=== PATIENT | male | born 1945 | race Caucasian/White ===

== ENCOUNTER 2023-08-17 06:20 | Day surgery (SDC) | payer MEDICARE ==
[2023-08-14 14:49] VITALS: BP 136/63; PULSE 58; RESP 19
[2023-08-14 14:50] LABS: BASOPHILS # (AUTO) 0.04 K/uL (0.00-0.20); BASOPHILS % (AUTO) 0.5 % (0.0-5.0); EOSINOPHILS # (AUTO) 0.22 K/uL (0.00-0.70); EOSINOPHILS % (AUTO) 2.9 % (0.0-8.0); HEMATOCRIT 43.8 % (42-54); IMMATURE GRANULOCYTE ABSOLUTE 0.02 K/uL (0-1); LYMPHOCYTES # (AUTO) 2.1 K/uL (1.0-4.8); MEAN CORPUSCULAR HEMOGLOBIN 32.1 pg (27.0-33.0); MEAN CORPUSCULAR HGB CONC 32.6 g/dL (32.0-36.0); MEAN CORPUSCULAR VOLUME 98.4 fL (79-99); MONOCYTES # (AUTO) 0.8 K/uL (0.1-1.0); NEUTROPHILS # (AUTO) 4.3 K/uL (1.8-7.7); NEUTROPHILS % (AUTO) 57.3 % (40.0-77.0); PLATELET COUNT (AUTO) 241 K/uL (130-400); RED BLOOD CELL COUNT(AUTO) 4.45 MIL/uL (4.50-6.20); RED CELL DISTRIBUTION WIDTH 13.3 % (11.0-15.5); WHITE BLOOD COUNT (AUTO) 7.5 K/uL (4.8-10.8)
[2023-08-14 14:52] LABS: APPEARANCE,URINE CLEAR (CLEAR); BILIRUBIN,URINE NEGATIVE (NEGATIVE); COLOR,URINE LIGHT-YELLOW (YELLOW); GLUCOSE, URINE (UA) NEGATIVE (NEGATIVE); KETONES,URINE NEGATIVE (NEGATIVE); LEUKOCYTE ESTERASE ,URINE NEGATIVE Leu/uL (NEGATIVE); NITRATE,URINE NEGATIVE (NEGATIVE); OCCULT BLOOD,URINE NEGATIVE (NEGATIVE); PH,URINE 5.5 (5.0-8.0); PROTEIN,URINE NEGATIVE (NEGATIVE); UROBILINOGEN,URINE 0.2 mg/dL (0.2-1.0)
[2023-08-14 14:53] LABS: ADD UA MICROSCOPIC YES
[2023-08-14 14:57] LABS: MUCUS,URINE RARE LPF (None Seen); RBC,URINE 0-1 /HPF (0-1); WBC,URINE 0-1 /HPF (0-1)
[2023-08-14 15:01] LABS: INR < 0.93 (0.85-1.15); PROTHROMBIN TIME 10.4 SEC (9.6-11.6)
[2023-08-14 15:02] LABS: PARTIAL THROMBOPLASTIN TIME 27.6 SEC (26.3-35.5)
[2023-08-14 15:13] LABS: ALBUMIN 3.6 g/dL (3.5-5.0); BILIRUBIN,TOTAL 0.2 mg/dL (0.2-1.0); CREATININE 1.1 mg/dL (0.5-1.5); POTASSIUM 4.7 mmol/L (3.5-5.1); TOTAL PROTEIN, SERUM 7.2 g/dL (6.0-8.3)
[~2023-08-17] VITALS: Ht 182.9 cm; Wt 76.7 kg
[2023-08-17] VITALS (17 sets, daily range): BP systolic 107–132; BP diastolic 44–62; PULSE 58–65; RESP 12–19
[~2023-08-17 06:20] MED LIST: AEC81 PO; FLEC100T3 PO
[2023-08-17] MEDS ORDERED: LACTATED RINGERS 1000ML 1,000 ML IV ONE (06:44)
[2023-08-17] MEDS ORDERED: CEFAZOLIN SODIUM 2 GM VIAL ONE (06:44)
[2023-08-17] MEDS ORDERED: HYDROMORPHONE 1 MG INJ ONE (07:12)
[2023-08-17] MEDS ORDERED: SUGAMMADEX SODIUM 200 MG/2 ML VIAL IV ONE (07:12)
[2023-08-17] MEDS ORDERED: FAMOTIDINE 20MG VIAL IV ONE (07:13)
[2023-08-17] MEDS ORDERED: PHENYLEPHRINE HCL 10 MG/ML 1ML VIAL IV ONE (07:16)
[2023-08-17] MEDS ORDERED: PROPOFOL 10 MG/ML 20ML VIAL IV ONE (07:19)
[2023-08-17] MEDS ORDERED: GLYCOPYRROLATE 1 MG/5 ML SYRINGE ONE (07:19)
[2023-08-17] MEDS ORDERED: ROCURONIUM 10MG/1ML SYR 10 MG/ML ML ONE (07:19)
[2023-08-17] MEDS ORDERED: LIDOCAINE PF 100MG/5ML (2%) SYRINGE 5ML ONE (07:19)
[2023-08-17] MEDS ORDERED: FENTANYL CITRATE PF 50 MCG/1 ML 2ML VIAL ONE (07:19)
[2023-08-17] MEDS ORDERED: BUPIVACAINE/PF 0.5% 30ML VIAL ONE (07:37)
[2023-08-17] MEDS ORDERED: ROPIVACAINE 0.5% 5MG/ML 30ML ONE (07:46)
[2023-08-17] MEDS ORDERED: EPHEDRINE SULFATE 50 MG/ML AMPULE ONE (08:44)
[2023-08-17] MEDS ORDERED: ONDANSETRON 4MG INJ ONE (08:53)
[2023-08-17] MEDS ORDERED: NEOSTIGMINE 5MG/5ML SYR IV ONE (09:47)
== END 2023-08-17 18:40 | disposition home or self-care (01) ==
LOC: DAH 06:20
PROVIDERS: ATTEND Student in an Organized Health Care Education/Training Program
DX: K40.90 Unilateral inguinal hernia, without obstruction or gangrene, not specified as recurrent (principal); D17.39 Benign lipomatous neoplasm of skin and subcutaneous tissue of other sites; Z79.01 Long term (current) use of anticoagulants; Z79.899 Other long term (current) drug therapy; Z98.41 Cataract extraction status, right eye; Z98.42 Cataract extraction status, left eye; Z87.891 Personal history of nicotine dependence; Z79.82 Long term (current) use of aspirin
CPT/HCPCS: 80053; 85025; 85610; 85730; 81001; 36415; 93005; 49650; A6260; A4600; A5113; C1781; J7030; A4344; J7120; J3490 ×3; J3010; J2710; J2001; J2704; J2405; J0665; J2795; J2371; J0690; C1769; G0168; C1713; A4215; A4223; A4358; A4222; A4221; A4663; J1170

== ENCOUNTER → 2023-11-28 | Outpatient (CLI) | payer OTHER | END | disposition home or self-care (01) | LOC: RAH 07:40 | PROVIDERS: ATTEND Internal Medicine Cardiovascular Disease | DX: Z13.6 Encounter for screening for cardiovascular disorders (principal) | CPT/HCPCS: 75571 ==

== ENCOUNTER 2024-09-30 18:28 | Emergency (ER) | payer MEDICARE, OTHER ==
[~2024-09-30] VITALS: Ht 182.9 cm; Wt 70.3 kg
--- NOTE | 2024-09-30 18:37 | EKG ---
[facility] Test Date: 2024-09-30 Test Time: 18:33:56 Pat Name: ALENA STYLES Department: ED Room: Gender: M Consumer Insights Specialist: [id number] : 1945 Requested By: NANCY GIRALDO Order Number: [id number] Reading MD: Prashant Su Measurements Intervals [place] Rate: 129 P: 0 ME: 0 QRS: 65 QRSD: 107 T: -65 QT: 327 QTc: 481 Interpretive Statements Atrial fibrillation Compared to ECG 08/14/2023 14:39:39 Sinus rhythm no longer present Electronically Signed On 10-01-2024 18:39:32 PLATFORM POWER TECHNICIAN by Prashant Su Please click the below link to view image of tracing.
--- NOTE | 2024-09-30 18:38 | ERN ---
ED Note History of Present Illness Stated Complaint: COUGH Chief Complaint: Congestion Time Seen by MD: 18:29 Dictation: PATIENT IS A 79-YEAR-OLD HERE WITH ATRIAL FIBRILLATION AND CAD WITH COMPLAINTS OF CHEST BURNING WITH COUGH HE HAS HAD FOR 5-6 DAYS. NO FEVER NO CHILLS STATES THE OCCASION OF THE COUGH HAS A YELLOW PHLEGM. STATES HE IS ON FLECAINIDE FOR HIS ATRIAL FIB. PATIENT NOTED TO BE TACHYCARDIC IN TRIAGE Allergies: Coded Allergies: No Known Drug Allergies (Unverified Allergy, Unknown, 08/14/23) Home Meds Reported Medications Aspirin (ASPIRIN 81 MG ECTAB) 81 Mg Ectab, 81 MG PO DAILY, TAB.EC 08/14/23 Flecainide Acetate (Flecainide Acetate) 100 Mg Tablet, 100 MG PO BID, TAB 08/14/23 Past Medical History Past Medical History: A-Fib Surgical History: Other Surgical History Other: HERNIA RN Note Reviewed/Agreed w/PFSH: Yes Review of System Dictation CONSTITUTIONAL: NEGATIVE EXCEPT FOR HPI HEAD/FACE: NEGATIVE EXCEPT FOR HPI EENT: NEGATIVE EXCEPT FOR HPI RESPIRATORY: NEGATIVE EXCEPT FOR HPI TACHYCARDIA WITH CHEST BURNING AND COUGH GASTROINTESTINAL/ABDOMINAL: NEGATIVE EXCEPT FOR HPI GENITOURINARY: NEGATIVE EXCEPT FOR HPI MUSCULOSKELETAL: NEGATIVE EXCEPT FOR HPI INTEGUMENTARY: NEGATIVE EXCEPT FOR HPI NEUROLOGICAL/PSYCH: NEGATIVE EXCEPT FOR HPI HEMATOLOGIC/LYMPHATIC: NEGATIVE EXCEPT FOR HPI ALL SYSTEMS NEGATIVE, EXCEPT NOTED ABOVE. 13 POINT REVIEW OF SYSTEMS ASSESSED AND ALL NEGATIVE EXCEPT FOR ABOVE. Initial Vital Sign VS Vital Signs Date Time Temp Pulse Resp B/P (MAP) Pulse Ox O2 Delivery O2 Flow Rate FiO2 09/30/24 18:31 97.5 69 20 127/102 99 Room Air 0 Physical Exam Dictation VITAL SIGNS REVIEWED GENERAL APPEARANCE: ALERT, ORIENTED X 3, NO ACUTE DISTRESS, WELL DEVELOPED, NOURISHED. HEAD AND FACE: NON-TRAUMATIC. EYES: PERRL, PINK CONJUNCTIVAS, EYELID NO TRAUMA, ANTERIOR CHAMBER WITH ARCUS SENILIS. EARS: PINNAS INTACT AND NO SIGNS OF TRAUMA OR ERYTHEMA EAR CANALS CLEAR AND NO DISCHARGE TM NO ERYTHEMA NOSE: NO DISCHARGE, NO BLEEDING. OROPHARYNX: MOUTH NORMAL, TONGUE PINK, PHARYNX CLEAR,NO ERYTHEMA, TONSILS NO EXUDATES, NO ABSCESSES NOTED, MUCOUS MEMBRANE MOIST NECK: SUPPLE, NON-TENDER, NO THYROMEGALY, NO MASSES, NO JVD, NO BRUITS BREAST:DEFERRED CHEST:NO TENDERNESS, NO CREPITUS, NO PARADOXICAL MOVEMENT, NO RETRACTIONS LUNGS:CLEAR, WELL-VENTILATED, SYMMETRIC, NO RALES, NO WHEEZING, NO RHONCHI, NO STRIDOR, GOOD BREATH SOUNDS BILATERALLY HEAR TACHYCARDIC AND IRREGULARLY IRREGULAR, NO MURMUR, NO GALLOPS VASCULAR: TRACE PERIPHERAL EDEMA, ABDOMEN: SOFT, POSITIVE BOWEL SOUNDS, NONDISTENDED, NO GUARDING, NONTENDER, NO REBOUND, NO MASSES NO HEPATOMEGALY, NO SPLENOMEGALY, NO BATES'S SIGN, NO HERNIAS. RECTAL: DEFERRED GENITAL: DEFERRED NEUROLOGICAL: NORMAL SPEECH, MOTOR FUNCTION INTACT, SENSORY FUNCTION INTACT MUSCULOSKELETAL: NECK NONTENDER, FULL RANGE OF MOTION, BACK NONTENDER, FULL RANGE OF MOTION, EXTREMITIES: NONTENDER, FULL RANGE OF MOTION SKIN: COLOR PINK, DRY, NO TURGOR, NO RASH, NO LACERATIONS, NO ABRASIONS, NO CONTUSIONS. LYMPHATIC: DEFERRED Results (Laboratory/Radiology) Laboratory/Radiology Laboratory Tests Test 09/30/24 18:44 White Blood Count 7.9 K/uL (4.8-10.8) Red Blood Count 4.49 MIL/uL (4.50-6.20) L Hemoglobin 14.5 g/dL (14.0-18.0) Hematocrit 42.9 % (42-54) Mean Corpuscular Volume 95.5 fL (79-99) Mean Corpuscular Hemoglobin 32.3 pg (27.0-33.0) Mean Corpuscular Hemoglobin Concent 33.8 g/dL (32.0-36.0) Red Cell Distribution Width 12.6 % (11.0-15.5) Platelet Count 261 K/uL (130-400) Mean Platelet Volume 9.0 fL (7.5-10.5) Immature Granulocyte % (Auto) 0.3 % (0-1) Neutrophils (%) (Auto) 53.2 % (40.0-77.0) Lymphocytes (%) (Auto) 28.7 % (21.0-51.0) Monocytes (%) (Auto) 13.0 % (3.0-13.0) Eosinophils (%) (Auto) 4.4 % (0.0-8.0) Basophils (%) (Auto) 0.4 % (0.0-5.0) Neutrophils # (Auto) 4.2 K/uL (1.8-7.7) Lymphocytes # (Auto) 2.3 K/uL (1.0-4.8) Monocytes # (Auto) 1.0 K/uL (0.1-1.0) Eosinophils # (Auto) 0.35 K/uL (0.00-0.70) Basophils # (Auto) 0.03 K/uL (0.00-0.20) Absolute Immature Granulocyte (auto 0.02 K/uL (0-1) Nucleated Red Blood Cells 0.0 % (0.0-0.19) Sodium Level 139 mmol/L (136-145) Potassium Level 4.1 mmol/L (3.5-5.1) Chloride Level 103 mmol/L (101-111) Carbon Dioxide Level 27 mmol/L (21-32) Blood Urea Nitrogen 19 mg/dL (7-18) H Creatinine 1.3 mg/dL (0.5-1.3) Glomerular Filtration Rate Calc 56 mL/min (>90) Random Glucose 88 mg/dL (70-105) Total Calcium 9.5 mg/dL (8.5-10.1) Magnesium Level 2.10 mg/dL (1.80-2.40) Troponin I High Sensitivity 4 ng/L (4-75) B-Type Natriuretic Peptide 59 pg/mL (0-100) PORTABLE CHEST RADIOGRAPH INDICATION: SHORTNESS OF BREATH/COUGH COMPARISON: None FINDINGS: Heart size is normal. The pulmonary vascularity and marissa appear normal. Subtle linear left lung base opacities without consolidation. No significant pleural effusion noted. No pneumothorax detected. IMPRESSION: Left lung base scarring and/or atelectasis without pneumonia. Labs Reviewed?: Yes EKG Comment: EKG ATRIAL FIBRILLATION WITH VENTRICULAR RATE 129/ ED Course ED Course Orders Procedure Category Date Status Time 12 Lead Ekg Tracing- EKG 09/30/24 Complete Technical 18:30 Covid19 (Sars Antigen LAB 09/30/24 Logged Rapid) 18:31 Cbc With Differential LAB 09/30/24 Complete 18:31 B-Type Natriuretic LAB 09/30/24 Complete Peptide 18:31 Chest 1vw RAD 09/30/24 Resulted 18:31 Magnesium LAB 09/30/24 Complete 18:31 Troponin I High LAB 09/30/24 Complete Sensitivity 18:31 Basic Metabolic Panel LAB 09/30/24 Complete 18:31 Metoprolol Tartrate PHA 09/30/24 Complete (Lopressor) 19:00 Current Medications Medications (Trade) Dose Ordered Sig/Dana Route PRN Reason Start Time Stop Time Status Last Admin Dose Admin Metoprolol Tartrate (loprESSOR) 5 mg ONCE ONCE IV 09/30/24 19:00 09/30/24 19:01 DC Vital Signs Date Time Temp Pulse Resp B/P (MAP) Pulse Ox O2 Delivery O2 Flow Rate FiO2 09/30/24 18:31 97.5 69 20 127/102 99 Room Air 0 HEART Score Response (Comments) Value EKG: Repolarization changes 1 Age: > 65yrs (+2) 2 Risk Factors: 1-2 risk factors (+1) 1 Initial Troponin: Normal limit (0) 0 Total 4 Medical Decision Making MDM Patient left against medical advice despite the fact that he knew he was in atrial fib with a RVR. When he arrived Currently he is in sinus rhythm with a heart rate of 79, is hemodynamically stable I explained to him why I wanted him to stay for further evaluation and possible admission He said I am old and I want to go home and spend time of my family during new 's day. He said he would come back if he felt worse. DX & DISP Disposition: AMA Departure Impression: Primary Impression: Atrial fibrillation with RVR Additional Impression: Stage III chronic kidney disease Condition: Stable Referrals: JOSE A SHAH (PCP) Time of Disposition: 20:27 I have reviewed the case, and I agree with, Diagnosis and Plan FAISAL VICTORIA NP Sep 30, 2024 18:38 LEO MARIN DO Oct 01, 2024 00:51
[2024-09-30 18:58] LABS: BASOPHILS # (AUTO) 0.03 K/uL (0.00-0.20); BASOPHILS % (AUTO) 0.4 % (0.0-5.0); EOSINOPHILS # (AUTO) 0.35 K/uL (0.00-0.70); EOSINOPHILS % (AUTO) 4.4 % (0.0-8.0); HEMATOCRIT 42.9 % (42-54); IMMATURE GRANULOCYTE ABSOLUTE 0.02 K/uL (0-1); LYMPHOCYTES # (AUTO) 2.3 K/uL (1.0-4.8); LYMPHOCYTES % (AUTO) 28.7 % (21.0-51.0); MEAN CORPUSCULAR HEMOGLOBIN 32.3 pg (27.0-33.0); MEAN CORPUSCULAR HGB CONC 33.8 g/dL (32.0-36.0); MEAN CORPUSCULAR VOLUME 95.5 fL (79-99); NEUTROPHILS # (AUTO) 4.2 K/uL (1.8-7.7); NEUTROPHILS % (AUTO) 53.2 % (40.0-77.0); PLATELET COUNT (AUTO) 261 K/uL (130-400); RED BLOOD CELL COUNT(AUTO) 4.49 MIL/uL (4.50-6.20); RED CELL DISTRIBUTION WIDTH 12.6 % (11.0-15.5); WHITE BLOOD COUNT (AUTO) 7.9 K/uL (4.8-10.8)
--- NOTE | 2024-09-30 19:06 | HMCIMG ---
PORTABLE CHEST RADIOGRAPH INDICATION: SHORTNESS OF BREATH/COUGH COMPARISON: None FINDINGS: Heart size is normal. The pulmonary vascularity and marissa appear normal. Subtle linear left lung base opacities without consolidation. No significant pleural effusion noted. No pneumothorax detected. IMPRESSION: Left lung base scarring and/or atelectasis without pneumonia.
[2024-09-30 19:12] LABS: CREATININE 1.3 mg/dL (0.5-1.3); POTASSIUM 4.1 mmol/L (3.5-5.1)
[2024-09-30 19:21] LABS: MAGNESIUM 2.1 mg/dL (1.80-2.40)
[2024-09-30 19:25] LABS: B-TYPE NATRIURETIC PEPTIDE 59 pg/mL (0-100)
[2024-09-30] MEDS: metoPROLOL tartRATE 1 MG/ML 5ML VIAL IV ONE (20:18)
--- NOTE | 2024-09-30 20:19 | NUR ---
PATIENT AMA PT IS A&OX4 AND ABLE TO RESPOND FORSELF. PT IS REQUESTING TO LEAVE AMA AT THIS TIME. PT RENIFORCED BY ED RN AND ED MD THE BENEIFTS OF CONTINUED TREATMENT AND HOSPITALIZATION. PT EXPLAINED RISKS AND CONSEQUENCES INVOLVED WITH LEAVING AT THIS TIME INCLUDING BUT NOT LIMITED TO OR WORSENING CONDITIONS. PT STATED UNDERSTANDING AND REQUESTING OF LEAVING STILL AT THIS TIME. PT EDUCATED TO CALL 911 OR RETURN TO NEARIST ER FOR RETURN OR WORSENING S/S. PT STATES UNDERSTANDING. AT BEDSIDE.
[2024-09-30 20:20] VITALS: BP 127/68; PULSE 74; RESP 18; TEMP 98.4; O2SAT 98
== END 2024-09-30 20:20 | disposition home or self-care (01) ==
LOC: EDH 18:28
DX: I48.91 Unspecified atrial fibrillation (principal); N18.30 Chronic kidney disease, stage 3 unspecified; Z79.899 Other long term (current) drug therapy; Z79.82 Long term (current) use of aspirin
CPT/HCPCS: 36415; 71045; 80048; 83735; 83880; 84484; 85025; 93005; 99285